=== PATIENT | female | born 1955 | race Caucasian/White ===

== ENCOUNTER 2018-12-19 23:44 | Observation (INO) | payer OTHER, MEDICAID ==
[2018-12-20] MEDS: SOD CHLORIDE 0.9% 1,000 ML IV (00:27)
[2018-12-20 00:28] LABS: ADD MAN DIFF? NO
[2018-12-20 00:30] LABS: BASOPHILS % 0.4 % (0.0-2.0); EOSINOPHILS # 0.1 10^3/ul (0.0-0.5); EOSINOPHILS % 1.3 % (0.0-7.0); HEMATOCRIT 38.2 % (37.0-47.0); HEMOGLOBIN 12.8 g/dl (12.0-16.0); LYMPHOCYTES % 31.6 % (15.0-51.0); MEAN CORPUSCULAR HEMOGLOBIN 28.9 pg (29.0-33.0); MEAN CORPUSCULAR HGB CONC 33.5 g/dl (32.0-37.0); MEAN CORPUSCULAR VOLUME 86.2 fl (82.0-101.0); MEAN PLATELET VOLUME 9.4 fl (7.4-10.4); MONOCYTE # 0.5 10^3/ul (0.3-0.9); MONOCYTES % 5.5 % (0.0-11.0); NEUTROPHIL # 5.7 10^3/ul (1.6-7.5); PLATELET COUNT 293 10^3/UL (140-415); RED BLOOD COUNT 4.43 10^6/ul (4.20-5.40); RED CELL DISTRIBUTION WIDTH 12.4 % (11.5-14.5)
[2018-12-20 00:30] LABS: WHITE BLOOD COUNT 9.3 10^3/ul (4.8-10.8)
[2018-12-20 00:39] LABS: ADD UMIC NO; UR ASCORBIC ACID NEGATIVE (NEGATIVE); UR BILIRUBIN (Dip) NEGATIVE (NEGATIVE); UR BLOOD (Dip) NEGATIVE (NEGATIVE); UR CLARITY CLEAR (CLEAR); UR COLOR STRAW (YELLOW); UR GLUCOSE (Dip) NEGATIVE (NEGATIVE); UR KETONES (Dip) TRACE mg/dL (NEGATIVE); UR LEUKOCYTE ESTERASE (Dip) NEGATIVE Leu/ul (NEGATIVE); UR NITRITE (Dip) NEGATIVE (NEGATIVE); UR SPECIFIC GRAVITY (Dip) 1.004 (1.003-1.030); UR TOTAL PROTEIN (Dip) NEGATIVE (NEGATIVE); UR UROBILINOGEN (Dip) NEGATIVE (NEGATIVE)
[2018-12-20] MEDS: morphine 4 MG/ML VIAL IV (00:40)
[2018-12-20 01:01] LABS: ALANINE AMINOTRANSFERASE 29 IU/L (13-69); ALBUMIN 4.3 g/dl (3.3-4.9); ALBUMIN/GLOBULIN RATIO 1.19; ALKALINE PHOSPHATASE 104 IU/L (42-121); ANION GAP 12 (5-13); ASPARTATE AMINO TRANSFERASE 29 IU/L (15-46); BILIRUBIN,INDIRECT 0.3 mg/dl (0-1.1); BILIRUBIN,TOTAL 0.3 mg/dl (0.2-1.3); BLOOD UREA NITROGEN 15 mg/dl (7-20); CALCIUM 10.1 mg/dl (8.4-10.2); CARBON DIOXIDE 21 mmol/L (21-31); CHLORIDE 103 mmol/L (97-110); Estimated GFR > 60 mL/min (>60); GLUCOSE 158 mg/dl (70-220); LIPASE 92 U/L (23-300); POTASSIUM 3.3 mmol/L (3.5-5.1); SODIUM 136 mmol/L (135-144); TOTAL PROTEIN 7.9 g/dl (6.1-8.1)
[2018-12-20 01:42] LABS: TROPONIN-I < 0.012 ng/ml (0.000-0.120)
[2018-12-20] MEDS: ASPIRIN 81 MG TAB PO ×3 (02:54→08:11)
[2018-12-20] MEDS ORDERED: ACETAMINOPHEN 325 MG TAB PO ×2 (03:00→04:00)
[2018-12-20] MEDS ORDERED: ONDANSETRON 4 MG INJ IV (03:00)
[2018-12-20] MEDS ORDERED: BISACODYL (EC) 5 MG TAB PO (04:00)
[2018-12-20] MEDS ORDERED: NACL 0.9% 3 ML SYG IV (04:00)
[2018-12-20] MEDS ORDERED: NITROGLYCERIN (SL) 0.4 MG TAB SL (04:00)
[2018-12-20] MEDS ORDERED: DOCUSATE SODIUM 100 MG CAP PO (04:00)
[2018-12-20] MEDS ORDERED: morphine 2 MG INJ IV (04:00)
[2018-12-20 06:12] LABS: ADD MAN DIFF? NO
[2018-12-20 06:25] LABS: WHITE BLOOD COUNT 8.2 10^3/ul (4.8-10.8)
[2018-12-20 06:25] LABS: BASOPHILS % 0.4 % (0.0-2.0); HEMATOCRIT 40.6 % (37.0-47.0); HEMOGLOBIN 13.5 g/dl (12.0-16.0); LYMPHOCYTES # 2.1 10^3/ul (0.8-2.9); LYMPHOCYTES % 24.9 % (15.0-51.0); MEAN CORPUSCULAR HEMOGLOBIN 29.3 pg (29.0-33.0); MEAN CORPUSCULAR HGB CONC 33.3 g/dl (32.0-37.0); MEAN CORPUSCULAR VOLUME 88.3 fl (82.0-101.0); MEAN PLATELET VOLUME 9.6 fl (7.4-10.4); MONOCYTE # 0.3 10^3/ul (0.3-0.9); MONOCYTES % 3.3 % (0.0-11.0); NEUTROPHIL # 5.9 10^3/ul (1.6-7.5); PLATELET COUNT 317 10^3/UL (140-415); RED CELL DISTRIBUTION WIDTH 12.6 % (11.5-14.5)
[2018-12-20 06:42] LABS: CREATINE KINASE 55 IU/L (23-200)
[2018-12-20 06:49] LABS: CK INDEX 0.7; CK-MB 0.38 ng/ml (0.0-2.4); TROPONIN-I < 0.012 ng/ml (0.000-0.120)
[2018-12-20 06:54] LABS: ANION GAP 10 (5-13); BLOOD UREA NITROGEN 12 mg/dl (7-20); CALCIUM 10.1 mg/dl (8.4-10.2); CARBON DIOXIDE 25 mmol/L (21-31); CHLORIDE 106 mmol/L (97-110); CHOL/HDL RATIO 4.6 RATIO; CHOLESTEROL 221 mg/dl (100-200); CREATININE 0.57 mg/dl (0.44-1.00); Estimated GFR > 60 mL/min (>60); GLUCOSE 116 mg/dl (70-220); HDL CHOLESTEROL 48 mg/dl (35-98); LDL CHOLESTEROL,CALCULATED 157 mg/dl; MAGNESIUM 1.9 mg/dl (1.7-2.5); POTASSIUM 4.6 mmol/L (3.5-5.1); SODIUM 141 mmol/L (135-144); TRIGLYCERIDES 79 mg/dl (0-149)
[2018-12-20] MEDS ORDERED: ENALAPRILAT 1.25 MG INJ IV (07:00)
[2018-12-20 07:01] LABS: HEMOGLOBIN A1C 5.9 % (0-5.9)
[2018-12-20 12:48] LABS: CREATINE KINASE 50 IU/L (23-200)
[2018-12-20 12:57] LABS: CK INDEX 0.6
[2018-12-20 13:02] LABS: TROPONIN-I < 0.012 ng/ml (0.000-0.120)
[2018-12-20] MEDS ORDERED: ATORVASTATIN 10 MG TAB PO (21:00)
[2018-12-21] MEDS ORDERED: PANTOPRAZOLE (EC) 40 MG TAB PO (09:00)
== END 2018-12-20 15:45 | disposition home or self-care (01) ==
LOC: E/R 23:44 → 6WM 12-20 02:34
PROVIDERS: Family Medicine
DX: R06.09 Other forms of dyspnea (principal); E11.9 Type 2 diabetes mellitus without complications; E78.00 Pure hypercholesterolemia, unspecified; E66.9 Obesity, unspecified; Z68.29 Body mass index [BMI] 29.0-29.9, adult; E78.5 Hyperlipidemia, unspecified; K21.9 Gastro-esophageal reflux disease without esophagitis; R03.0 Elevated blood-pressure reading, without diagnosis of hypertension; Z79.82 Long term (current) use of aspirin; Z79.84 Long term (current) use of oral hypoglycemic drugs
CPT/HCPCS: 36415; 71045; 80048; 80053; 80061; 81003; 82550; 82553; 82962; 83036; 83690; 83735; 84443; 84484; 85025; 93005; 93306; 96374; 99285-25; G0378